=== PATIENT | male | born 1975 | race American Indian/Alaskan Native ===

== ENCOUNTER 2021-08-02 20:47 | Inpatient (IN) | payer SELFPAY ==
[2021-08-03] MEDS ORDERED: ONDANSETRON 4 MG/2 ML INJ IV ONE ×2 (03:35→06:26)
[2021-08-03] MEDS ORDERED: KETOROLAC 30 MG/1 ML INJ IV ONE (03:35)
[2021-08-03] MEDS ORDERED: SODIUM CHLORIDE 0.9% 1000 ML 1,000 ML IV ONE (03:35)
[2021-08-03] MEDS ORDERED: HYOSCYAMINE SUBL 0.125 MG TAB SL ONE (03:36)
[2021-08-03 04:26] LABS: Hematocrit 52.1 % (35.5-45.6); Hemoglobin 17.1 gm/dl (11.8-15.2); Mean Corpuscular HGB Conc 33 % (32-34); Mean Corpuscular Volume 93 fl (84-94); Platelet Count 174 K/mm3 (140-440); Red Blood Count 5.63 M/mm3 (3.65-5.03); Red Cell Distribution Width 13.9 % (13.2-15.2)
[2021-08-03 04:36] LABS: Alanine Aminotransferase 18 units/L (7-56); Albumin 4.9 g/dL (3.9-5)
[2021-08-03 04:45] LABS: Bilirubin,Direct < 0.2 mg/dL (0-0.2)
[2021-08-03 05:45] LABS: BUN/Creatinine Ratio 17; Blood Urea Nitrogen 19 mg/dL (9-20); Calcium 9.2 mg/dL (8.4-10.2); Hemolysis Index 7
[2021-08-03] MEDS ORDERED: INSULIN REGULAR, HUMAN 100 UNITS/1 ML IV ONE ×2 (06:22→06:37)
--- NOTE | 2021-08-03 06:47 | Emergency Department Report ---
ED N/V/D HPI - General Chief complaint: Abdominal Pain Stated complaint: ABD PAIN Time Seen by Provider: 08/03/21 03:15 Source: patient Mode of arrival: Ambulatory Limitations: No Limitations - History of Present Illness Initial comments: 46-year-old male with no reported past medical history presents emergency department complaining nausea vomiting of unknown etiology with upper abdominal pain and is not sure if is related to food, travel or any sickness. He denies taking any illicit drugs or any medication or doing anything to alleviate the symptoms. Pain is worse with eating MD complaint: nausea, vomiting, abdominal pain -: Gradual, days(s) (3) Associated Abdominal Pain: Yes Location: LUQ, RUQ, epigastric Radiation: none Severity: mild, moderate Quality: aching Consistency: constant Improves with: none Worsens with: none Associated Symptoms: myalgias, nausea/vomiting. denies: cough, diaphoresis, loss of appetite, syncope, weakness - Related Data Allergies Allergy/AdvReac Type Severity Reaction Status Date / Time No Known Allergies Allergy Unverified 08/02/21 21:08 ED Review of Systems ROS: Stated complaint: ABD PAIN Other details as noted in HPI Comment: All other systems reviewed and negative ED Physical Exam - General Limitations: No Limitations General appearance: alert, other (Patient is uncomfortable moaning) - Head Head exam: Present: atraumatic, normocephalic - Eye Eye exam: Present: normal appearance, PERRL, EOMI - ENT ENT exam: Present: normal exam, mucous membranes moist - Neck Neck exam: Present: normal inspection - Respiratory Respiratory exam: Present: normal lung sounds bilaterally. Absent: respiratory distress, wheezes, rales - Cardiovascular Cardiovascular Exam: Present: regular rate, normal rhythm. Absent: systolic murmur, diastolic murmur, rubs, gallop - GI/Abdominal GI/Abdominal exam: Present: soft, normal bowel sounds - Rectal Rectal exam: Present: deferred - Extremities Exam Extremities exam: Present: normal inspection - Back Exam Back exam: Present: normal inspection - Neurological Exam Neurological exam: Present: alert, oriented X3 - Psychiatric Psychiatric exam: Present: normal affect, normal mood - Skin Skin exam: Present: warm, dry, intact, normal color. Absent: rash ED Course Vital Signs 08/02/21 21:07 Temperature 98.1 F Pulse Rate 110 H Respiratory 16 Rate Blood Pressure 152/92 [Right] O2 Sat by Pulse 99 Oximetry ED Medical Decision Making - Lab Data Result diagrams: 08/03/21 03:46 08/03/21 05:16 Lab Results 08/03/21 08/03/21 08/03/21 Range/Units 03:46 03:46 03:46 WBC 10.0 (4.5-11.0) K/mm3 RBC 5.63 H (3.65-5.03) M/mm3 Hgb 17.1 H (11.8-15.2) gm/dl Hct 52.1 H (35.5-45.6) % MCV 93 (84-94) fl MCH 30 (28-32) pg MCHC 33 (32-34) % RDW 13.9 (13.2-15.2) % Plt Count 174 (140-440) K/mm3 Seg Neutrophils % Marine Photographer VBG pH (7.320-7.420) Sodium (137-145) mmol/L Potassium (3.6-5.0) mmol/L Chloride (98-107) mmol/L Carbon Dioxide (22-30) mmol/L Anion Gap mmol/L BUN (9-20) mg/dL Creatinine (0.8-1.3) mg/dL Estimated GFR ml/min BUN/Creatinine Ratio % Glucose (75-100) mg/dL POC Glucose (70-105) mg/dL Calcium (8.4-10.2) mg/dL Total Bilirubin 0.70 (0.1-1.2) mg/dL Direct Bilirubin < 0.2 (0-0.2) mg/dL Indirect Bilirubin 0.5 mg/dL AST 15 (5-40) units/L ALT 18 (7-56) units/L Alkaline Phosphatase 155 H (35-129) units/L Total Protein 8.7 H (6.3-8.2) g/dL Albumin 4.9 (3.9-5) g/dL Albumin/Globulin Ratio 1.3 % Lipase 8 L (13-60) units/L 08/03/21 08/03/21 08/03/21 Range/Units 05:16 06:24 06:27 WBC (4.5-11.0) K/mm3 RBC (3.65-5.03) M/mm3 Hgb (11.8-15.2) gm/dl Hct (35.5-45.6) % MCV (84-94) fl MCH (28-32) pg MCHC (32-34) % RDW (13.2-15.2) % Plt Count (140-440) K/mm3 Seg Neutrophils % VBG pH 7.259 L (7.320-7.420) Sodium 135 L (137-145) mmol/L Potassium 4.7 (3.6-5.0) mmol/L Chloride 98.4 (98-107) mmol/L Carbon Dioxide 9 L* (22-30) mmol/L Anion Gap 32 mmol/L BUN 19 (9-20) mg/dL Creatinine 1.1 (0.8-1.3) mg/dL Estimated GFR > 60 ml/min BUN/Creatinine Ratio 17 % Glucose 456 H (75-100) mg/dL POC Glucose 387 H (70-105) mg/dL Calcium 9.2 (8.4-10.2) mg/dL Total Bilirubin (0.1-1.2) mg/dL Direct Bilirubin (0-0.2) mg/dL Indirect Bilirubin mg/dL AST (5-40) units/L ALT (7-56) units/L Alkaline Phosphatase (35-129) units/L Total Protein (6.3-8.2) g/dL Albumin (3.9-5) g/dL Albumin/Globulin Ratio % Lipase (13-60) units/L - Medical Decision Making This 46-year-old male presents emerged part with nausea and vomiting vomiting suspicious of a transient illness however was found to have a more serious cause. Laboratory findings indicate onset of the new onset of diabetes and current DKA. Given the course and examination does not appear to be secondary to any other emergent cause such as bowel obstruction, coronary syndrome, bowel ischemia, pancreatitis, appendicitis or other acute abdomen problems. Case was discussed with hospitalist Dr. Stephenson and the plan is to admit for new onset diabetes and treatment of DKA. Critical care attestation.: If time is entered above; I have spent that time in minutes in the direct care of this critically ill patient, excluding procedure time. ED Disposition Clinical Impression: DKA (diabetic ketoacidosis) Disposition: 01 HOME / SELF CARE / HOMELESS Is pt being admited?: Yes Does the pt Need Aspirin: No Condition: Stable Instructions: Diabetic Ketoacidosis (ED)
[2021-08-03 07:16] LABS: Eosinophils % (Manual) 0 % (0.0-4.3); Platelet Estimate Consistent w Auto; RBC Morphology Normal; Total Cells Counted 100
[2021-08-03] MEDS ORDERED: POTASSIUM CHLORIDE 10 MEQ 10 MEQ/100 ML BAG IV PRN ×2 (07:47)
[2021-08-03] MEDS ORDERED: ACETAMINOPHEN 325 MG TAB PO PRN (08:00)
[2021-08-03] MEDS ORDERED: MORPHINE 2 MG/1 ML INJ IV PRN (08:00)
[2021-08-03] MEDS ORDERED: SODIUM CHLORIDE 0.9% 1000 ML 1,000 ML IV SCH (08:00)
[2021-08-03] MEDS: METOCLOPRAMIDE 10 MG/2 ML INJ IV PRN (08:02)
--- NOTE | 2021-08-03 08:07 | History and Physical Report ---
History of Present Illness Date of examination: 08/03/21 Date of admission: 08/03/2021 Chief complaint: Nausea/vomiting History of present illness: HPI: 46-year-old male with past medical history of type 2 diabetes, hypertension, obesity presenting to our facility with complaint of nausea vomiting. Patient was seen at [facility] on Monday for similar complaints. He states that he was discharged and advised to follow-up with his primary care physician. He pr esented to our facility with worsening symptoms and inability to keep food or water down. He states that he does use insulin 70/30 30 units nightly. He does not have a glucometer at home and does not check his blood sugars regularly. He states because that is a concern however states that normally he is compliant. He started feeling ill on Monday and was not eating through the weekend which pr ompted him to stop taking his insulin due to concerns for hypoglycemia. Prior to the weekend the patient stated that he was eating unhealthy and drinking uncontrollably. He he cited the hot weather as the reason for this. Patient does not know his hemoglobin A1c. 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 primary Medications and Allergies Allergies Allergy/AdvReac Type Severity Reaction Status Date / Time No Known Allergies Allergy Unverified 08/02/21 21:08 Active Meds: Active Medications Acetaminophen (Acetaminophen 325 Mg Tab) 650 mg PO Q6H PRN PRN Reason: Pain MILD(1-3)/Fever >100.5/ABARCA Dextrose (Dextrose 50% In Water (25gm) 50 Ml Syringe) 0 ml IV Q30MIN PRN; Protocol PRN Reason: Hypoglycemia Insulin Human Regular 100 (units/ Sodium Chloride) 100 mls @ 1 mls/hr IV TITR RODGER; Protocol Potassium Chloride/Dextrose/Sod Cl (D5w/0.45% Nacl/Kcl 20 Meq) 20 meq in 1,000 mls @ 150 mls/hr IV DIRECT RODGER Potassium Chloride (Kcl 10meq/100ml) 10 meq in 100 mls @ 100 mls/hr IV Q1H PRN PRN Reason: LOW Potassium Levels Potassium Chloride (Kcl 10meq/100ml) 10 meq in 100 mls @ 100 mls/hr IV Q1H PRN PRN Reason: LOW Potassium Levels Sodium Chloride (Nacl 0.9% 1000 Ml) 1,000 mls @ 150 mls/hr IV DIRECT RODGER Metoclopramide HCl (Metoclopramide 10 Mg/2 Ml Inj) 10 mg IV Q6H PRN PRN Reason: Nausea And Vomiting Last Admin: 08/03/21 08:02 Dose: 10 mg Morphine Sulfate (Morphine 2 Mg/1 Ml Inj) 2 mg IV Q4H PRN PRN Reason: Pain, Moderate (4-6) Sodium Chloride (Sodium Chloride 0.9% 10 Ml Flush Syringe) 10 ml IV BID RODGER Sodium Chloride (Sodium Chloride 0.9% 10 Ml Flush Syringe) 10 ml IV PRN PRN PRN Reason: LINE FLUSH Review of Systems All systems: negative (For stated in HPI) Exam - Physical Exam Narrative exam: Physical Exam: VITAL SIGNS: Reviewed. GENERAL: The patient appears normally developed, Vital signs as documented. Obese HEAD: No signs of head trauma. EYES: Pupils are equal. Extraocular motions intact. EARS: Hearing grossly intact. MOUTH: Oropharynx is normal. NECK: No adenopathy, no JVD. CHEST: Chest with clear breath sounds bilaterally. No wheezes, rales, or rhonchi. CARDIAC: Regular rate and rhythm. S1 and S2, without murmurs, gallops, or rubs. VASCULAR: No Edema. Peripheral pulses normal and equal in all extremities. ABDOMEN: Soft, non tender and non distended. No rebound or guarding, and no masses palpated. Bowel Sounds normal. MUSCULOSKELETAL: Good range of motion of all major joints. Extremities without clubbing, cyanosis or edema. NEUROLOGIC EXAM: Alert and oriented x 4. no focal sensory or strength deficits. PSYCHIATRIC: Mood normal. SKIN: detail exam as documented in skin assessment - Constitutional Vitals: Temp Pulse Resp BP Pulse Ox 98.1 F 110 H 16 152/92 99 08/02/21 21:07 08/02/21 21:07 08/02/21 21:07 08/02/21 21:07 08/02/21 21:07 Results - Labs CBC & Chem 7: 08/03/21 03:46 08/03/21 08:40 Labs: Laboratory Last Values WBC 10.0 K/mm3 (4.5-11.0) 08/03/21 03:46 RBC 5.63 M/mm3 (3.65-5.03) H 08/03/21 03:46 Hgb 17.1 gm/dl (11.8-15.2) H 08/03/21 03:46 Hct 52.1 % (35.5-45.6) H 08/03/21 03:46 MCV 93 fl (84-94) 08/03/21 03:46 MCH 30 pg (28-32) 08/03/21 03:46 MCHC 33 % (32-34) 08/03/21 03:46 RDW 13.9 % (13.2-15.2) 08/03/21 03:46 Plt Count 174 K/mm3 (140-440) 08/03/21 03:46 Add Manual Diff Complete 08/03/21 03:46 Total Counted 100 08/03/21 03:46 Seg Neutrophils % Telephone Station Installer 08/03/21 03:46 Seg Neuts % (Manual) 94.0 % (40.0-70.0) H 08/03/21 03:46 Band Neutrophils % 0 % 08/03/21 03:46 Lymphocytes % (Manual) 4.0 % (13.4-35.0) L 08/03/21 03:46 Reactive Lymphs % (Man) 0 % 08/03/21 03:46 Monocytes % (Manual) 1.0 % (0.0-7.3) 08/03/21 03:46 Eosinophils % (Manual) 0 % (0.0-4.3) 08/03/21 03:46 Basophils % (Manual) 1.0 % (0.0-1.8) 08/03/21 03:46 Metamyelocytes % 0 % 08/03/21 03:46 Myelocytes % 0 % 08/03/21 03:46 Promyelocytes % 0 % 08/03/21 03:46 Blast Cells % 0 % 08/03/21 03:46 Nucleated RBC % Not Reportable 08/03/21 03:46 Seg Neutrophils # Man 9.4 K/mm3 (1.8-7.7) H 08/03/21 03:46 Band Neutrophils # 0.0 K/mm3 08/03/21 03:46 Lymphocytes # (Manual) 0.4 K/mm3 (1.2-5.4) L 08/03/21 03:46 Abs React Lymphs (Man) 0.0 K/mm3 08/03/21 03:46 Monocytes # (Manual) 0.1 K/mm3 (0.0-0.8) 08/03/21 03:46 Eosinophils # (Manual) 0.0 K/mm3 (0.0-0.4) 08/03/21 03:46 Basophils # (Manual) 0.1 K/mm3 (0.0-0.1) 08/03/21 03:46 Metamyelocytes # 0.0 K/mm3 08/03/21 03:46 Myelocytes # 0.0 K/mm3 08/03/21 03:46 Promyelocytes # 0.0 K/mm3 08/03/21 03:46 Blast Cells # 0.0 K/mm3 08/03/21 03:46 WBC Morphology Not Reportable 08/03/21 03:46 Hypersegmented Neuts Not Reportable 08/03/21 03:46 Hyposegmented Neuts Not Reportable 08/03/21 03:46 Hypogranular Neuts Not Reportable 08/03/21 03:46 Smudge Cells Not Reportable 08/03/21 03:46 Toxic Granulation Not Reportable 08/03/21 03:46 Toxic Vacuolation Not Reportable 08/03/21 03:46 Dohle Bodies Not Reportable 08/03/21 03:46 Pelger-Huet Anomaly Not Reportable 08/03/21 03:46 Ivone Rods Not Reportable 08/03/21 03:46 Platelet Estimate Consistent w auto 08/03/21 03:46 Clumped Platelets Not Reportable 08/03/21 03:46 Plt Clumps, EDTA Not Reportable 08/03/21 03:46 Large Platelets Not Reportable 08/03/21 03:46 Giant Platelets Not Reportable 08/03/21 03:46 Platelet Satelliting Not Reportable 08/03/21 03:46 Plt Morphology Comment Not Reportable 08/03/21 03:46 RBC Morphology Normal 08/03/21 03:46 Dimorphic RBCs Not Reportable 08/03/21 03:46 Polychromasia Not Reportable 08/03/21 03:46 Hypochromasia Not Reportable 08/03/21 03:46 Poikilocytosis Not Reportable 08/03/21 03:46 Anisocytosis Not Reportable 08/03/21 03:46 Microcytosis Not Reportable 08/03/21 03:46 Macrocytosis Not Reportable 08/03/21 03:46 Spherocytes Not Reportable 08/03/21 03:46 Pappenheimer Bodies Not Reportable 08/03/21 03:46 Sickle Cells Not Reportable 08/03/21 03:46 Target Cells Not Reportable 08/03/21 03:46 Tear Drop Cells Not Reportable 08/03/21 03:46 Ovalocytes Not Reportable 08/03/21 03:46 Helmet Cells Not Reportable 08/03/21 03:46 Lee-Duvall Bodies Not Reportable 08/03/21 03:46 [place] Rings Not Reportable 08/03/21 03:46 [place] Cells Not Reportable 08/03/21 03:46 Bite Cells Not Reportable 08/03/21 03:46 Crenated Cell Not Reportable 08/03/21 03:46 Elliptocytes Not Reportable 08/03/21 03:46 Acanthocytes (Spur) Not Reportable 08/03/21 03:46 Rouleaux Not Reportable 08/03/21 03:46 Hemoglobin C Crystals Not Reportable 08/03/21 03:46 Schistocytes Not Reportable 08/03/21 03:46 Malaria parasites Not Reportable 08/03/21 03:46 Cristian Bodies Not Reportable 08/03/21 03:46 Hem Pathologist Commnt No 08/03/21 03:46 VBG pH 7.259 (7.320-7.420) L 08/03/21 06:27 Sodium 135 mmol/L (137-145) L 08/03/21 05:16 Potassium 4.7 mmol/L (3.6-5.0) 08/03/21 05:16 Chloride 98.4 mmol/L (98-107) 08/03/21 05:16 Carbon Dioxide 9 mmol/L (22-30) L* 08/03/21 05:16 Anion Gap 32 mmol/L 08/03/21 05:16 BUN 19 mg/dL (9-20) 08/03/21 05:16 Creatinine 1.1 mg/dL (0.8-1.3) 08/03/21 05:16 Estimated GFR > 60 ml/min 08/03/21 05:16 BUN/Creatinine Ratio 17 % 08/03/21 05:16 Glucose 456 mg/dL (75-100) H 08/03/21 05:16 POC Glucose 387 mg/dL (70-105) H 08/03/21 06:24 Calcium 9.2 mg/dL (8.4-10.2) 08/03/21 05:16 Total Bilirubin 0.70 mg/dL (0.1-1.2) 08/03/21 03:46 Direct Bilirubin < 0.2 mg/dL (0-0.2) 08/03/21 03:46 Indirect Bilirubin 0.5 mg/dL 08/03/21 03:46 AST 15 units/L (5-40) 08/03/21 03:46 ALT 18 units/L (7-56) 08/03/21 03:46 Alkaline Phosphatase 155 units/L (35-129) H 08/03/21 03:46 Total Protein 8.7 g/dL (6.3-8.2) H 08/03/21 03:46 Albumin 4.9 g/dL (3.9-5) 08/03/21 03:46 Albumin/Globulin Ratio 1.3 % 08/03/21 03:46 Lipase 8 units/L (13-60) L 08/03/21 03:46 Assessment and Plan Assessment and plan: Assessment and Plan: #Diabetic ketoacidosis - A, BG 456, VBG pH: 7.259 - +nausea/vomiting - DKA protocol: IV insulin, IVF. - NPO until AG closes - once AG closed (< 14), can start lantus 10 mg subq. Please run insulin gtt 1hr after lantus admin. Can initiate diabetic diet as well - accuchecks q1 hr until AG closed - BMP q4hr until AG closed - CCM consulted #Metabolic acidosis - management as above #Type 2 Diabetes with Hyperglycemia - hemoglobin A1c: pending - home regimen: Unknown - current regimen: Moderate SSI - blood glucose goal 140-180 while inpatient - continue to monitor #Pseudohyponatremia - 135, scondary to DKA - IVF as above #Tachycardia -Likely from volume depletion -Aggressive IV fluid rehydration per DKA protocol #Essential hypertension -As needed labetalol IV Initiated on CURTIS inhibitor for renal protection #Morbid Obesity - BMI 40.6 - Counseled patient on the importance of weight loss, incorporating exercise, and dietary changes (lean meats, low carbohydrate diet, low glycemic fresh fruits and vegetables, and water intake). Patient expresses understanding. - Time: +15 min #Preventative health care - preventative health counseling regarding management of life stressors, medication compliance and overall effect of chronic medical conditions on overall health. Encourage patient to follow up closely with with OP providers +30 minutes. The high probability of a clinically significant, sudden or life threatening deterioration of the [endocrine] system(s) required my full and direct attention, intervention and personal management. The aggregate critical care time was [60] minutes. This time is in addition to time spent performing reported procedures but includes the following: [x] Data Review and interpretation [x] Patient assessment and monitoring of vital signs [x] Documentation [x] Medication orders and management
[2021-08-03] MEDS ORDERED: DEXTROSE 50% IN WATER (25GM) 50 ML SYRINGE IV PRN (08:30)
[2021-08-03] MEDS ORDERED: INSULIN REGULAR, HUMAN 100 UNITS in SODIUM CHLORIDE 0.9% 99 ML IV SCH (09:00)
[2021-08-03 09:08] LABS: BUN/Creatinine Ratio 16; Blood Urea Nitrogen 18 mg/dL (9-20); Calcium 8.9 mg/dL (8.4-10.2); Hemolysis Index 11
--- NOTE | 2021-08-03 11:49 | Consultation ---
History of Present Illness - Reason for Consult Consult date: 08/03/21 DKA - History of Present Illness 46 y/o male admitted with dKA. Has known diabetes but due to lack of funding has not been able to be seen by a physician to get scripts for medications. Past History Past Medical History: diabetes Medications and Allergies Allergies Allergy/AdvReac Type Severity Reaction Status Date / Time No Known Allergies Allergy Unverified 08/02/21 21:08 Home Medications Medication Instructions Recorded Confirmed Last Taken Type Insulin Regular, Human [Novolin R] 30 units SUB-Q QHS 08/03/21 08/03/21 07/31/21 20:00 History 30 units Active Meds: Active Medications Acetaminophen (Acetaminophen 325 Mg Tab) 650 mg PO Q6H PRN PRN Reason: Pain MILD(1-3)/Fever >100.5/ABARCA Dextrose (Dextrose 50% In Water (25gm) 50 Ml Syringe) 0 ml IV Q30MIN PRN; Protocol PRN Reason: Hypoglycemia Insulin Human Regular 100 (units/ Sodium Chloride) 100 mls @ 1 mls/hr IV TITR RODGER; Protocol Last Titration: 08/03/21 11:11 Dose: 7 units/hr, 7 mls/hr Potassium Chloride/Dextrose/Sod Cl (D5w/0.45% Nacl/Kcl 20 Meq) 20 meq in 1,000 mls @ 150 mls/hr IV DIRECT RODGER Potassium Chloride (Kcl 10meq/100ml) 10 meq in 100 mls @ 100 mls/hr IV Q1H PRN PRN Reason: LOW Potassium Levels Potassium Chloride (Kcl 10meq/100ml) 10 meq in 100 mls @ 100 mls/hr IV Q1H PRN PRN Reason: LOW Potassium Levels Sodium Chloride (Nacl 0.9% 1000 Ml) 1,000 mls @ 150 mls/hr IV DIRECT RODGER Metoclopramide HCl (Metoclopramide 10 Mg/2 Ml Inj) 10 mg IV Q6H PRN PRN Reason: Nausea And Vomiting Last Admin: 08/03/21 08:02 Dose: 10 mg Morphine Sulfate (Morphine 2 Mg/1 Ml Inj) 2 mg IV Q4H PRN PRN Reason: Pain, Moderate (4-6) Sodium Chloride (Sodium Chloride 0.9% 10 Ml Flush Syringe) 10 ml IV BID RODGER Sodium Chloride (Sodium Chloride 0.9% 10 Ml Flush Syringe) 10 ml IV PRN PRN PRN Reason: LINE FLUSH Review of Systems All systems: negative Exam - Constitutional Vitals: Temp Pulse Resp BP Pulse Ox 98.1 F 125 H 13 150/90 99 08/02/21 21:07 08/03/21 11:00 08/03/21 11:00 08/03/21 11:00 08/03/21 11:00 Results - Labs CBC & Chem 7: 08/04/21 04:49 08/04/21 04:49 Labs: Abnormal lab results 08/03/21 08/03/21 08/03/21 Range/Units 03:46 03:46 03:46 RBC 5.63 H (3.65-5.03) M/mm3 Hgb 17.1 H (11.8-15.2) gm/dl Hct 52.1 H (35.5-45.6) % Seg Neuts % (Manual) 94.0 H (40.0-70.0) % Lymphocytes % (Manual) 4.0 L (13.4-35.0) % Seg Neutrophils # Man 9.4 H (1.8-7.7) K/mm3 Lymphocytes # (Manual) 0.4 L (1.2-5.4) K/mm3 VBG pH (7.320-7.420) Sodium (137-145) mmol/L Carbon Dioxide (22-30) mmol/L Glucose (75-100) mg/dL POC Glucose (70-105) mg/dL Hemoglobin A1c (4-6) % Alkaline Phosphatase 155 H (35-129) units/L Total Protein 8.7 H (6.3-8.2) g/dL Lipase 8 L (13-60) units/L 08/03/21 08/03/21 08/03/21 Range/Units 05:16 06:24 06:27 RBC (3.65-5.03) M/mm3 Hgb (11.8-15.2) gm/dl Hct (35.5-45.6) % Seg Neuts % (Manual) (40.0-70.0) % Lymphocytes % (Manual) (13.4-35.0) % Seg Neutrophils # Man (1.8-7.7) K/mm3 Lymphocytes # (Manual) (1.2-5.4) K/mm3 VBG pH 7.259 L (7.320-7.420) Sodium 135 L (137-145) mmol/L Carbon Dioxide 9 L* (22-30) mmol/L Glucose 456 H (75-100) mg/dL POC Glucose 387 H (70-105) mg/dL Hemoglobin A1c (4-6) % Alkaline Phosphatase (35-129) units/L Total Protein (6.3-8.2) g/dL Lipase (13-60) units/L 08/03/21 08/03/21 08/03/21 Range/Units 08:40 08:40 11:05 RBC (3.65-5.03) M/mm3 Hgb (11.8-15.2) gm/dl Hct (35.5-45.6) % Seg Neuts % (Manual) (40.0-70.0) % Lymphocytes % (Manual) (13.4-35.0) % Seg Neutrophils # Man (1.8-7.7) K/mm3 Lymphocytes # (Manual) (1.2-5.4) K/mm3 VBG pH (7.320-7.420) Sodium 135 L (137-145) mmol/L Carbon Dioxide 9 L* (22-30) mmol/L Glucose 427 H (75-100) mg/dL POC Glucose 362 H (70-105) mg/dL Hemoglobin A1c 10.7 H (4-6) % Alkaline Phosphatase (35-129) units/L Total Protein (6.3-8.2) g/dL Lipase (13-60) units/L Assessment and Plan 46 y/o male with DKA 1. NPO 2. IVF's until blood sugar is less than 250 then change to IVF's with D5 plus or minus K repletion 3. once anion gap closes, transition to long acting insulin (patient has no funding so would consider 70/30) and attempt to feed patient. 4. Diabetic education 5. Lifestyle changes, including diet and weight loss.
[2021-08-03] MEDS: D5W/0.45% NACL/KCL 20 MEQ 20 MEQ/1,000 ML BAG IV SCH ×2 (15:06→21:29)
[2021-08-03 16:04] LABS: BUN/Creatinine Ratio 19; Blood Urea Nitrogen 19 mg/dL (9-20); Calcium 9.4 mg/dL (8.4-10.2); Hemolysis Index 17
[2021-08-03] MEDS: LISINOPRIL 20 MG TAB PO SCH (17:15)
[2021-08-03] MEDS: ONDANSETRON 4 MG/2 ML INJ IV PRN ×2 (17:16→20:37)
[2021-08-03] MEDS ORDERED: LACTATED RINGERS 1,000 ML IV ONE (17:47)
[2021-08-03 20:40] LABS: Blood Urea Nitrogen 15 mg/dL (9-20); Calcium 8.2 mg/dL (8.4-10.2); Hemolysis Index 7
[2021-08-03 20:46] LABS: BUN/Creatinine Ratio 21
[2021-08-04] MEDS: D5W/0.45% NACL/KCL 20 MEQ 20 MEQ/1,000 ML BAG IV SCH (03:28)
[2021-08-04 05:12] LABS: Basophils % (Auto) 0.3 % (0.0-1.8); Eosinophils % (Auto) 0.1 % (0.0-4.3); Hematocrit 41.3 % (35.5-45.6); Hemoglobin 14.2 gm/dl (11.8-15.2); Lymphocytes # (Auto) 1.5 K/mm3 (1.2-5.4); Lymphocytes % (Auto) 14.9 % (13.4-35.0); Mean Corpuscular HGB Conc 34 % (32-34); Mean Corpuscular Volume 89 fl (84-94); Monocytes # (Auto) 0.8 K/mm3 (0.0-0.8); Monocytes % (Auto) 8.1 % (0.0-7.3); Platelet Count 142 K/mm3 (140-440); Red Blood Count 4.65 M/mm3 (3.65-5.03); Red Cell Distribution Width 13.4 % (13.2-15.2)
[2021-08-04 05:31] LABS: BUN/Creatinine Ratio 13; Blood Urea Nitrogen 10 mg/dL (9-20); Calcium 8.5 mg/dL (8.4-10.2); Hemolysis Index 23
[2021-08-04] MEDS: ONDANSETRON 4 MG/2 ML INJ IV PRN ×2 (05:41→09:51)
[2021-08-04] MEDS: METOCLOPRAMIDE 10 MG/2 ML INJ IV PRN (06:25)
[2021-08-04] MEDS ORDERED: DEXTROSE 50% IN WATER (25GM) 50 ML SYRINGE IV PRN (07:16)
[2021-08-04] MEDS ORDERED: INSULIN NPH/REGULAR 70/30 INJ SUB-Q SCH (08:00)
[2021-08-04] MEDS ORDERED: POTASSIUM CHLORIDE ER 20 MEQ TAB PO SCH (08:00)
[2021-08-04] MEDS: INSULIN REGULAR, HUMAN 100 UNITS/1 ML SUB-Q SCH ×2 (08:35→11:49)
--- NOTE | 2021-08-04 09:47 | Electrocardiograph Report ---
[facility] Test Date: 2021-08-03 Test Time: 14:27:12 Pat Name: FABIO SIMON Department: Room: A256 1 Gender: M Alley Worker: FADIA : 1975 Requested By: SHI FARIAS Order Number: [id number] Reading MD: Elliott Mccarthy Measurements Intervals [place] Rate: 119 P: 67 ND: 140 QRS: 70 QRSD: 76 T: QT: 310 QTc: 437 Interpretive Statements Sinus tachycardia Probable left atrial enlargement Nonspecific T abnormalities, lateral leads No previous ECG available for comparison Electronically Signed On 08-04-2021 9:46:32 EDT by Elliott Mccarthy
--- NOTE | 2021-08-04 10:52 | Event Note ---
Date: 08/04/21 Gap closed. Still with nausea but tolerating PO. Will transition to floor. Will sign off.
[2021-08-04] MEDS: LISINOPRIL 20 MG TAB PO SCH (10:54)
[2021-08-04 11:02] VITALS: BP 133/92
--- NOTE | 2021-08-04 12:38 | Discharge Summary ---
Providers - Providers Date of Admission: 08/03/21 08:00 Date of discharge: 08/04/21 Attending physician: SHI FARIAS MD 08/03/21 07:42 Consult to Dietitian/Nutrition [CONS] Routine Physician Instructions: Reason For Exam: DKA Reason for Consult: Nutrition Recommendations Reason for Consult: Diet education Primary care physician: PRODUCTION ENGINE REPAIRER Hospitalization Condition: Stable Hospital course: This is a 46-year-old male with type II DM, hypertension and obesity who presented to the emergency department on 08/03 with complaints of nausea and vomiting. Of note patient was seen at [facility] on Monday for similar complaints and states that he was discharged with advised to follow-up with primary care physician. Work-up in the emergency department revealed lab work consistent with DKA with anion gap 28, blood glucose 456, VBG 7.259. Patient was admitted to the hospital service with DKA on an insulin drip with consult to CCM. This morning patient has been transitioned off of insulin drip and started on 70/30 insulin subcutaneous. He was complaining of nausea but no vomiting. Patient able to tolerate p.o. intake. Patient will be discharged home. Patient has been given resources for management of his diabetes outpatient as he does not have medical insurance. Encourage lifestyle modifications. Assessment and plan # s/p diabetic ketoacidosis, h/o DM II - A, BG 456, VBG pH: 7.259, +nausea/vomiting - s/p insulin drip - Consistent carbohydrate diet - Hbg A1C 10.7 - Glucose monitoring per primary care physician instructions - Discharged with blood glucose monitoring materials - Given resources for continued DM care # Metabolic acidosis - resolved # Pseudohyponatremia (resolved) - 135, scondary to DKA - DC Na 137 # Tachycardia - Likely from volume depletion - Aggressive IV fluid rehydration per DKA protocol # Essential hypertension - Initiated on CURTIS inhibitor for renal protection - Continue Blood pressure monitoring per primary care instructions # Morbid Obesity - BMI 40.6 - Counseled patient on the importance of weight loss, incorporating exercise, and dietary changes (lean meats, low carbohydrate diet, low glycemic fresh fruits and vegetables, and water intake). Patient expresses understanding. # Preventative health care - preventative health counseling regarding management of life stressors, medication compliance and overall effect of chronic medical conditions on overall health. Encourage patient to follow up closely with with OP providers Disposition: HOME / SELF CARE / HOMELESS Final Discharge Diagnosis (Prints w/discharge instructions): s/p Diabetic ketoacidosis, Metabolic acidosis, Type 2 Diabetes with Hyperglycemia, Pseudohyponatremia, Tachycardia, Essential hypertension, Morbid Obesity Time spent for discharge: 60 Core Measure Documentation - Palliative Care Palliative Care/ Comfort Measures: Not Applicable - Core Measures Any of the following diagnoses?: none Exam - Constitutional Vitals: Temp Pulse Resp BP Pulse Ox 98.2 F 113 H 15 133/92 96 08/04/21 12:01 08/04/21 11:00 08/04/21 11:00 08/04/21 11:00 08/04/21 11:00 General appearance: Present: no acute distress, obese - EENT Eyes: Present: PERRL, EOM intact ENT: hearing intact, clear oral mucosa, dentition normal - Neck Neck: Present: normal ROM - Respiratory Respiratory effort: normal Respiratory: bilateral: CTA - Cardiovascular Rhythm: regular Heart Sounds: Present: S1 & S2. Absent: systolic murmur, diastolic murmur - Extremities Extremities: no ischemia, pulses intact, pulses symmetrical, No edema, normal temperature, normal color, Full ROM Peripheral Pulses: within normal limits - Abdominal General gastrointestinal: Present: soft, non-tender, normal bowel sounds - Integumentary Integumentary: Present: clear, warm, dry - Musculoskeletal Musculoskeletal: strength equal bilaterally - Psychiatric Psychiatric: appropriate mood/affect, cooperative - Neurologic Neurologic: CNII-XII intact, no focal deficits, moves all extremities - Allied Health Allied health notes reviewed: nursing, RT, social work Plan Activity: advance as tolerated Diet: diabetic Special Instructions: record daily BP diary, record blood sugar diary Additional Instructions: You will be discharged with Novolin 70/30 insulin and 1 vial of regular insulin. Follow insulin protocol for administration of correcting dose of regular insulin. You will need to follow-up with your primary care physician. We will discharge you with glucose monitoring supplies. You will need to follow-up with the resources are given to you for continued care. Present to nearest emergency department or contact primary care physician if you experience worsening symptoms. Follow up with: PRIMARY CARE, [Primary Care Provider] - 3-5 Days [facility] [Outside] - 7 Days [facility] [Outside] - [address] [facility] [Outside] - 7 Days [facility] [Outside] - 7 Days [facility] [Outside] - 7 Days Prescriptions: Insulin Regular, Human [HumuLIN R] See Protocol SUB-Q ACHS #1 vial Insulin NPH/Regular [NovoLIN 70/30] 15 unit SUB-Q BIDDIAB #1 vial Insulin Regular, Human [Novolin R] 100 unit SQ ACHS #1 vial lisinopriL [Zestril TAB] 20 mg PO QDAY #30 tablet
== END 2021-08-04 13:30 | disposition home or self-care (01) | DRG 638 ==
LOC: ED 20:47 → CC1 08-03 08:00
PROVIDERS: ADMIT Internal Medicine; ATTEND Internal Medicine
DX: E11.10 Type 2 diabetes mellitus with ketoacidosis without coma (principal); Z68.41 Body mass index [BMI] 40.0-44.9, adult; E11.65 Type 2 diabetes mellitus with hyperglycemia; E66.01 Morbid (severe) obesity due to excess calories; I10 Essential (primary) hypertension
CPT/HCPCS: 36415; 80048; 80076; 82805; 82962; 83036; 83690; 83735; 84100; 85007; 85025; 93005; G0378; J3480; Q0177; Q9967; J1815; J1885; J2405; J2765; J7030; J7120